=== PATIENT | female | born 1950 | race Two or more races ===

== ENCOUNTER 2020-03-24 09:06 | Outpatient (CLI) | payer OTHER | END 2020-03-24 09:09 | disposition home or self-care (01) | LOC: RX STUDY 09:06 | PROVIDERS: ATTEND Internal Medicine Endocrinology, Diabetes & Metabolism | DX: R13.19 Other dysphagia (principal); E04.1 Nontoxic single thyroid nodule ==

== ENCOUNTER 2021-03-25 10:55 | Emergency (ER) | payer OTHER ==
[~2021-03-25] VITALS: Ht 154.9 cm; Wt 59.9 kg
[2021-03-25] MEDS ORDERED: EVISTA60 MG PO (11:40)
[2021-03-25] MEDS ORDERED: OMEGA 3 1,0001 EACH PO (11:40)
[2021-03-25] MEDS ORDERED: SYNTHROID100 MCG PO (11:40)
== END 2021-03-25 20:23 | disposition home or self-care (01) ==
LOC: ER 10:55
DX: R10.31 Right lower quadrant pain (principal); R10.32 Left lower quadrant pain; K57.32 Diverticulitis of large intestine without perforation or abscess without bleeding